=== PATIENT | female | born 1950 | race Caucasian/White ===

== ENCOUNTER 2016-08-11 05:46 | Day surgery (SDC) | payer OTHER ==
[2016-08-05 09:16] VITALS: BMI 30.4
--- NOTE | 2016-08-11 07:06 | HP ---
Admitting History and Physical - Admission History of Present Illness: patient is a 65 y/o female with a past medical history of niddm, hypothyroidism , and scizophrenia. Patient presents for ECT, her last ECT was 08/04/16. She reports increased sleeping and feeling of depressions. She denies any suicidal or homicidal ideation. patient denies any visual or auditory hallucination. She denies any recent illness or hospitalizations. History Source: Patient - Past Medical History Cardiovascular: Yes: HTN, Hyperlipdemia. No: AFIB, Aneurysm, Aortic Insufficiency, Aortic Stenosis, CAD, CHF, Deep Vein Thrombosis, [place], Mitral Insufficiency, Mitral Stenosis, Murmur, Pulmonary Hypertension, Other Psych: Yes: Schizophrenia Endocrine: Yes: Hyperthyroidism. No: Carter's Disease, Bill's Disease, Diabetes Insipidus, Diabetes Mellitus, Hyperparathyroidism, Hypothyroidism, Osteopenia, SIADH, Other - Past Surgical History Past Surgical History: Yes: None - Smoking History Smoking history: Former smoker Have you smoked in the past 12 months: No If you are a former smoker, when did you quit?: - Alcohol/Substance Use Hx Alcohol Use: No History of Substance Use: reports: None - Social History Usual Living Arrangement: Yes: Other (resides at ECT) ADL: Independent History of Recent Travel: No Home Medications - Allergies Allergies/Adverse Reactions: Allergies Allergy/AdvReac Type Severity Reaction Status Date / Time lithium [[place]] AdvReac Mild SHAKINESS Verified 03/29/16 06:38 - Home Medications Home Medications: Ambulatory Orders Aspirin [Aspirin EC] 81 mg PO DAILY 07/09/14 Cyclosporine [Restasis] 1 each OU BID 07/09/14 Clozapine 200 mg PO DAILY 07/10/14 Clozapine 300 mg PO HS 07/10/14 Levothyroxine [Synthroid -] 125 mcg PO DAILY 07/10/14 Lorazepam [Ativan] 1 mg PO BID 07/10/14 Metformin HCl [Glucophage -] 500 mg PO BID 07/10/14 Mv,Ca,Min/Iron Fum/FA/Vit K [Multi For Her Tablet] 1 each PO DAILY 07/10/14 Sertraline HCl [Zoloft] 100 mg PO HS 07/10/14 Sennosides [Senna Concentrate] 8.6 mg PO DAILY 03/05/15 Naproxen [Naprosyn -] 500 mg PO BID PRN 07/17/15 Polyethylene Glycol 3350 [Miralax 119 gm Btl -] 17 gm PO HS 10/01/15 Brexpiprazole [Rexulti] 2 mg PO DAILY 04/19/16 Oxcarbazepine [Trileptal] 600 mg PO BID 08/04/16 Family Disease History - Family Disease History Family History: Unremarkable Review of Systems - Review of Systems Constitutional: reports: No Symptoms Eyes: reports: No Symptoms HENT: reports: No Symptoms Neck: reports: No Symptoms Cardiovascular: reports: No Symptoms Respiratory: reports: No Symptoms Gastrointestinal: reports: No Symptoms Genitourinary: reports: No Symptoms Musculoskeletal: reports: No Symptoms Integumentary: reports: No Symptoms Neurological: reports: No Symptoms Endocrine: reports: No Symptoms Hematology/Lymphatic: reports: No Symptoms Psychiatric: reports: Depression Physical Examination Constitutional: Yes: Well Nourished, No Distress, Calm Eyes: Yes: WNL, Conjunctiva Clear, EOM Intact HENT: Yes: WNL, Atraumatic, Normocephalic Neck: Yes: WNL, Supple, Trachea Midline Cardiovascular: Yes: WNL, Regular Rate and Rhythm, S1, S2 Respiratory: Yes: WNL, Regular, CTA Bilaterally Gastrointestinal: Yes: WNL, Normal Bowel Sounds, Soft ...Rectal Exam: Yes: Deferred Renal/: Yes: WNL Breast(s): Yes: WNL Musculoskeletal: Yes: WNL Extremities: Yes: WNL Edema: No Peripheral Pulses WNL: Yes Peripheral Pulses: Left Radial: 4+, Right Radial: 4+, Left Doralis Pedis: 3+, Right Dorsalis Pedis: 3+, Left Femoral: 3+, Right Femoral: 3+ Integumentary: Yes: WNL Neurological: Yes: WNL, Alert, Oriented ...Motor Strength: WNL Psychiatric: Yes: WNL, Alert, Oriented Labs: reviewed 03/22 Imaging - Results EKG: Report Reviewed, Other (nsr no ischemic changes, unchanged from prior) Assessment/Plan pt is a 65 y/o female that presents for ECT, patient has received ect in the past, labs and ekg reviewed low risk for ECT informed consent, risks/benefits to be obtained by Dr [place]
[2016-08-11] MEDS ORDERED: ONDANSETRON 4 MG/2 ML VIAL IVPUSH PRN (08:39)
[2016-08-11 08:59] VITALS: TEMP 98.7
[2016-08-11 10:13] VITALS: BP 130/70; PULSE 88
== END 2016-08-11 12:20 | disposition home or self-care (01) ==
LOC: FECT 05:46
PROVIDERS: ATTEND Psychiatry & Neurology Psychiatry
PROC: GZB4ZZZ Other Electroconvulsive Therapy (ICD-10-PCS; principal; 2016-08-11 07:30)
DX: F25.1 Schizoaffective disorder, depressive type (principal)
CPT/HCPCS: 90870; 94760

== ENCOUNTER 2016-08-18 05:38 | Day surgery (SDC) | payer OTHER ==
[2016-08-11 13:29] VITALS: BMI 30.4
[2016-08-18] MEDS ORDERED: ONDANSETRON 4 MG/2 ML VIAL IVPUSH PRN (07:21)
[2016-08-18 08:20] VITALS: TEMP 98.9
[2016-08-18 08:45] VITALS: PULSE 89
[2016-08-18 10:07] VITALS: BP 132/72
== END 2016-08-18 09:45 | disposition home or self-care (01) ==
LOC: FECT 05:38
PROVIDERS: ATTEND Psychiatry & Neurology Psychiatry
PROC: GZB4ZZZ Other Electroconvulsive Therapy (ICD-10-PCS; principal; 2016-08-18 07:30)
DX: F25.1 Schizoaffective disorder, depressive type (principal)
CPT/HCPCS: 90870; 94760

== ENCOUNTER 2016-08-25 05:43 | Day surgery (SDC) | payer OTHER ==
[2016-08-18 14:12] VITALS: BMI 30.4
[2016-08-25] MEDS ORDERED: ONDANSETRON 4 MG/2 ML VIAL IVPUSH PRN (06:04)
[2016-08-25 06:17] VITALS: TEMP 98
[2016-08-25] MEDS ORDERED: KETAMINE HCL 500 MG/10 ML VIAL ONE (06:58)
[2016-08-25 11:21] VITALS: BP 140/71; PULSE 88
== END 2016-08-25 11:00 | disposition home or self-care (01) ==
LOC: FECT 05:43
PROVIDERS: ATTEND Psychiatry & Neurology Psychiatry
PROC: GZB4ZZZ Other Electroconvulsive Therapy (ICD-10-PCS; principal; 2016-08-25 07:45)
DX: F25.1 Schizoaffective disorder, depressive type (principal)
CPT/HCPCS: 90870; 94760

== ENCOUNTER 2016-09-01 05:35 | Day surgery (SDC) | payer OTHER ==
[2016-08-29 08:14] VITALS: BMI 30.4
[2016-09-01] MEDS ORDERED: KETAMINE HCL 500 MG/10 ML VIAL ONE (07:39)
[2016-09-01] MEDS ORDERED: LACTATED RINGERS SOLUTION 1,000 ML IV SCH (07:45)
[2016-09-01 08:49] VITALS: BP 143/82; PULSE 84; TEMP 97.4
== END 2016-09-01 10:14 | disposition home or self-care (01) ==
LOC: FECT 05:35
PROVIDERS: ATTEND Psychiatry & Neurology Psychiatry
PROC: GZB4ZZZ Other Electroconvulsive Therapy (ICD-10-PCS; principal; 2016-09-01 07:45)
DX: F25.1 Schizoaffective disorder, depressive type (principal)
CPT/HCPCS: 90870; 94760

== ENCOUNTER 2016-09-08 05:32 | Day surgery (SDC) | payer OTHER ==
[2016-09-05 17:43] VITALS: BMI 30.4
--- NOTE | 2016-09-08 06:59 | HP ---
Admitting History and Physical - Admission History of Present Illness: patient is a 65 y/o female with a past medical history of NIDDM, hypothyroidism , scizophrenia. Patient reports her ECT, her last ECT was 09/01/16. She reports ongoing feelings of depression. she denies any suicidal ideation. Patient denies any visual or auditory hallucination. She does reports compliance with prescribed medications. - Past Medical History Cardiovascular: Yes: HTN, Hyperlipdemia. No: AFIB, Aneurysm, Aortic Insufficiency, Aortic Stenosis, CAD, CHF, Deep Vein Thrombosis, [place], Mitral Insufficiency, Mitral Stenosis, Murmur, Pulmonary Hypertension, Other Psych: Yes: Schizophrenia Endocrine: Yes: Hyperthyroidism. No: [place]'s Disease, [place]'s Disease, Diabetes Insipidus, Diabetes Mellitus, Hyperparathyroidism, Hypothyroidism, Osteopenia, SIADH, Other - Past Surgical History Past Surgical History: Yes: None - Smoking History Smoking history: Former smoker Have you smoked in the past 12 months: No If you are a former smoker, when did you quit?: - Alcohol/Substance Use Hx Alcohol Use: No History of Substance Use: reports: None - Social History ADL: Independent History of Recent Travel: No Home Medications - Allergies Allergies/Adverse Reactions: Allergies Allergy/AdvReac Type Severity Reaction Status Date / Time lithium [[place]] AdvReac Mild SHAKINESS Verified 03/29/16 06:38 - Home Medications Home Medications: Ambulatory Orders Aspirin [Aspirin EC] 81 mg PO DAILY 07/09/14 Cyclosporine [Restasis] 1 each OU BID 07/09/14 Clozapine 200 mg PO DAILY 07/10/14 Clozapine 300 mg PO HS 07/10/14 Levothyroxine [Synthroid -] 125 mcg PO DAILY 07/10/14 Lorazepam [Ativan] 1 mg PO BID 07/10/14 Metformin HCl [Glucophage -] 500 mg PO BID 07/10/14 Mv,Calcium,Min/Iron/Folic/Vitk [Multi For Her Tablet] 1 each PO DAILY 07/10/14 Sertraline HCl [Zoloft] 100 mg PO HS 07/10/14 Sennosides [Senna Concentrate] 8.6 mg PO DAILY 03/05/15 Naproxen [Naprosyn -] 500 mg PO BID PRN 07/17/15 Polyethylene Glycol 3350 [Miralax 119 gm Btl -] 17 gm PO HS 10/01/15 Brexpiprazole [Rexulti] 2 mg PO DAILY 04/19/16 Oxcarbazepine [Trileptal] 600 mg PO BID 08/04/16 Family Disease History - Family Disease History Family History: Unremarkable Review of Systems - Review of Systems Constitutional: reports: No Symptoms Eyes: reports: No Symptoms HENT: reports: No Symptoms Neck: reports: No Symptoms Cardiovascular: reports: No Symptoms Respiratory: reports: No Symptoms Gastrointestinal: reports: No Symptoms Genitourinary: reports: No Symptoms Musculoskeletal: reports: No Symptoms Integumentary: reports: No Symptoms Neurological: reports: No Symptoms Endocrine: reports: No Symptoms Hematology/Lymphatic: reports: No Symptoms Psychiatric: reports: Depression Physical Examination Constitutional: Yes: Well Nourished, No Distress, Calm Eyes: Yes: WNL, Conjunctiva Clear, EOM Intact HENT: Yes: WNL, Atraumatic, Normocephalic Neck: Yes: WNL, Supple, Trachea Midline Cardiovascular: Yes: WNL, Regular Rate and Rhythm, S1, S2 Respiratory: Yes: WNL, Regular, CTA Bilaterally Gastrointestinal: Yes: WNL, Normal Bowel Sounds, Soft ...Rectal Exam: Yes: Deferred Renal/: Yes: WNL Breast(s): Yes: WNL Musculoskeletal: Yes: WNL Extremities: Yes: WNL Edema: No Peripheral Pulses WNL: Yes Peripheral Pulses: Left Radial: 4+, Right Radial: 4+, Left Doralis Pedis: 3+, Right Dorsalis Pedis: 3+, Left Femoral: 3+, Right Femoral: 3+ Integumentary: Yes: WNL Neurological: Yes: WNL, Alert, Oriented ...Motor Strength: WNL Psychiatric: Yes: WNL, Alert, Oriented Labs: reviewed 03/22 Imaging - Results EKG: Image Reviewed (nsr, no ischemic changes) Assessment/Plan patient is a 65 y/o female that presents for ect, she has received ect in the past and denies any adverse reaction to anesthesia. labs and ekg reviewed pt is low risk for ect informed consent, risks/benefits to be obtained by Dr [place]
[2016-09-08 09:11] VITALS: TEMP 98.4
[2016-09-08 09:32] VITALS: BP 122/82; PULSE 89
== END 2016-09-08 10:00 | disposition home or self-care (01) ==
LOC: FECT 05:32
PROVIDERS: ATTEND Psychiatry & Neurology Psychiatry
PROC: GZB4ZZZ Other Electroconvulsive Therapy (ICD-10-PCS; principal; 2016-09-08 07:15)
DX: F25.1 Schizoaffective disorder, depressive type (principal)
CPT/HCPCS: 90870; 94760

== ENCOUNTER 2016-09-21 05:45 | Day surgery (SDC) | payer OTHER ==
[2016-09-09 14:00] VITALS: BMI 30.6
[~2016-09-21 05:45] MED LIST: ONDANSETRON 4 MG/2 ML VIAL IVPUSH PRN
[2016-09-21] MEDS ORDERED: ONDANSETRON 4 MG/2 ML VIAL IVPUSH PRN (07:33)
[2016-09-21] MEDS ORDERED: oxyCODONE HCL 5 MG TABLET PO PRN (07:33)
[2016-09-21] MEDS ORDERED: LACTATED RINGERS SOLUTION 1,000 ML IV SCH (07:45)
[2016-09-21 09:16] VITALS: BP 113/66; PULSE 78; TEMP 98
== END 2016-09-21 10:00 | disposition home or self-care (01) ==
LOC: FECT 05:45
PROVIDERS: ATTEND Psychiatry & Neurology Psychiatry
PROC: GZB4ZZZ Other Electroconvulsive Therapy (ICD-10-PCS; principal; 2016-09-21 07:45)
DX: F25.1 Schizoaffective disorder, depressive type (principal)
CPT/HCPCS: 90870; 94760

== ENCOUNTER 2016-10-06 05:36 | Day surgery (SDC) | payer OTHER ==
[2016-09-21 09:34] VITALS: BMI 30.6
[~2016-10-06 05:36] MED LIST changes: +LACTATED RINGERS SOLUTION 1,000 ML IV SCH
[2016-10-06] MEDS ORDERED: ONDANSETRON 4 MG/2 ML VIAL IVPUSH PRN (06:48)
[2016-10-06 08:46] VITALS: TEMP 98.9
[2016-10-06 11:41] VITALS: BP 134/87; PULSE 74
== END 2016-10-06 10:10 | disposition home or self-care (01) ==
LOC: FECT 05:36
PROVIDERS: ATTEND Psychiatry & Neurology Psychiatry
PROC: GZB4ZZZ Other Electroconvulsive Therapy (ICD-10-PCS; principal; 2016-10-06 08:00)
DX: F25.1 Schizoaffective disorder, depressive type (principal)
CPT/HCPCS: 90870; 94760

== ENCOUNTER 2016-10-25 05:43 | Day surgery (SDC) | payer OTHER ==
[2016-10-19 18:12] VITALS: BMI 30.6
[2016-10-25 07:47] VITALS: TEMP 97.9
[2016-10-25] MEDS ORDERED: LACTATED RINGERS SOLUTION 1,000 ML IV SCH (09:00)
[2016-10-25] MEDS ORDERED: ONDANSETRON 4 MG/2 ML VIAL IVPUSH PRN (09:00)
[2016-10-25 11:26] VITALS: BP 142/76; PULSE 76
== END 2016-10-25 10:30 | disposition home or self-care (01) ==
LOC: FECT 05:43
PROVIDERS: ATTEND Psychiatry & Neurology Psychiatry
PROC: GZB4ZZZ Other Electroconvulsive Therapy (ICD-10-PCS; principal; 2016-10-25 07:30)
DX: F25.1 Schizoaffective disorder, depressive type (principal)
CPT/HCPCS: 90870; 94760

== ENCOUNTER 2016-11-03 05:43 | Day surgery (SDC) | payer OTHER ==
[2016-10-31 12:14] VITALS: BMI 30.6
[2016-11-03] MEDS ORDERED: KETAMINE HCL 500 MG/10 ML VIAL ONE (07:09)
[2016-11-03 08:38] VITALS: TEMP 98
[2016-11-03 10:33] VITALS: BP 140/85; PULSE 88
== END 2016-11-03 10:30 | disposition home or self-care (01) ==
LOC: FECT 05:43
PROVIDERS: ATTEND Psychiatry & Neurology Psychiatry
PROC: GZB4ZZZ Other Electroconvulsive Therapy (ICD-10-PCS; principal; 2016-11-03 08:15)
DX: F25.1 Schizoaffective disorder, depressive type (principal)
CPT/HCPCS: 90870; 94760

== ENCOUNTER 2016-11-10 05:39 | Day surgery (SDC) | payer OTHER ==
[2016-11-08 10:52] VITALS: BMI 30.6
[2016-11-10 06:57] VITALS: TEMP 98.8
[2016-11-10] MEDS ORDERED: KETAMINE HCL 500 MG/10 ML VIAL ONE (07:29)
[2016-11-10 08:47] VITALS: BP 138/80; PULSE 83
== END 2016-11-10 09:15 | disposition short-term general hospital (02) ==
LOC: FECT 05:39
PROVIDERS: ATTEND Psychiatry & Neurology Psychiatry
PROC: GZB4ZZZ Other Electroconvulsive Therapy (ICD-10-PCS; principal; 2016-11-10 07:45)
DX: F25.1 Schizoaffective disorder, depressive type (principal)
CPT/HCPCS: 90870; 94760

== ENCOUNTER 2016-11-22 05:37 | Day surgery (SDC) | payer OTHER ==
[2016-11-22 06:54] VITALS: TEMP 98.3; BMI 30.6
--- NOTE | 2016-11-22 07:13 | HP ---
Admitting History and Physical - Admission History of Present Illness: patient is a 66 y/o female with a past medical history of NIDDM, hypothyroidism , and scizophrenia. Patient presents for ECT her last ECT was11/10/16. Patient reports an improvement in depressive symptom within the past month since restarting ECT. she reports increasing her days in program to 3 days a week. patient denies any recent medication changes, hospitalizations or illness. she reports compliance with prescribed medications. - Past Medical History Cardiovascular: Yes: HTN, Hyperlipdemia. No: AFIB, Aneurysm, Aortic Insufficiency, Aortic Stenosis, CAD, CHF, Deep Vein Thrombosis, [place], Mitral Insufficiency, Mitral Stenosis, Murmur, Pulmonary Hypertension, Other Psych: Yes: Schizophrenia Endocrine: Yes: Hyperthyroidism. No: [place]'s Disease, Bill's Disease, Diabetes Insipidus, Diabetes Mellitus, Hyperparathyroidism, Hypothyroidism, Osteopenia, SIADH, Other - Past Surgical History Past Surgical History: Yes: None - Smoking History Smoking history: Former smoker Have you smoked in the past 12 months: No If you are a former smoker, when did you quit?: - Alcohol/Substance Use Hx Alcohol Use: No History of Substance Use: reports: None - Social History ADL: Independent History of Recent Travel: No Home Medications - Allergies Allergies/Adverse Reactions: Allergies Allergy/AdvReac Type Severity Reaction Status Date / Time lithium [[place]] AdvReac Mild SHAKINESS Verified 10/06/16 15:11 - Home Medications Home Medications: Ambulatory Orders Aspirin [Aspirin EC] 81 mg PO DAILY 07/09/14 Cyclosporine [Restasis] 1 each OU BID 07/09/14 Clozapine 200 mg PO DAILY 07/10/14 Clozapine 300 mg PO HS 07/10/14 Levothyroxine [Synthroid -] 125 mcg PO DAILY 07/10/14 Lorazepam [Ativan] 1 mg PO BID 07/10/14 Metformin HCl [Glucophage -] 500 mg PO BID 07/10/14 Mv,Calcium,Min/Iron/Folic/Vitk [Multi For Her Tablet] 1 each PO DAILY 07/10/14 Sertraline HCl [Zoloft] 100 mg PO DAILY 07/10/14 Sennosides [Senna Concentrate] 8.6 mg PO DAILY 03/05/15 Naproxen [Naprosyn -] 500 mg PO BID PRN 07/17/15 Polyethylene Glycol 3350 [Miralax 119 gm Btl -] 17 gm PO HS 10/01/15 Brexpiprazole [Rexulti] 2 mg PO DAILY 04/19/16 Oxcarbazepine [Trileptal] 600 mg PO BID 08/04/16 Family Disease History - Family Disease History Family History: Unremarkable Review of Systems - Review of Systems Constitutional: reports: No Symptoms Eyes: reports: No Symptoms HENT: reports: No Symptoms Neck: reports: No Symptoms Cardiovascular: reports: No Symptoms Respiratory: reports: No Symptoms Gastrointestinal: reports: No Symptoms Genitourinary: reports: No Symptoms Breasts: reports: No Symptoms Reported Musculoskeletal: reports: No Symptoms Integumentary: reports: No Symptoms Neurological: reports: No Symptoms Endocrine: reports: No Symptoms Hematology/Lymphatic: reports: No Symptoms Psychiatric: reports: No Symptoms Physical Examination Vital Signs: Vital Signs Temperature 98.3 F 11/22/16 06:50 Pulse Rate 94 H 11/22/16 06:50 Respiratory Rate 18 11/22/16 06:50 Blood Pressure 157/89 11/22/16 06:50 O2 Sat by Pulse Oximetry (%) 96 11/22/16 06:50 Constitutional: Yes: Well Nourished, No Distress, Calm Eyes: Yes: WNL, Conjunctiva Clear, EOM Intact HENT: Yes: WNL, Atraumatic, Normocephalic Neck: Yes: WNL, Supple, Trachea Midline Cardiovascular: Yes: WNL, Regular Rate and Rhythm, S1 Respiratory: Yes: WNL, Regular, CTA Bilaterally Gastrointestinal: Yes: WNL, Normal Bowel Sounds, Soft ...Rectal Exam: Yes: Deferred Renal/: Yes: WNL Musculoskeletal: Yes: WNL Extremities: Yes: WNL Edema: No Peripheral Pulses WNL: Yes Peripheral Pulses: Left Radial: 4+, Right Radial: 4+, Left Doralis Pedis: 3+, Right Dorsalis Pedis: 3+, Left Femoral: 3+, Right Femoral: 3+ Integumentary: Yes: WNL Neurological: Yes: WNL, Alert, Oriented ...Motor Strength: WNL Psychiatric: Yes: WNL, Alert, Oriented Labs: reviewed 10/21 Imaging - Results EKG: Image Reviewed Assessment/Plan pt is a 66 y/o female that presents for ECT, she has received anesthesia in the past and denies any adverse reaction to anesthesia. labs and ekg reviewed pt is low risk for procedure informed consent, risks/benefits to be obtained by Dr [place].
[2016-11-22] MEDS ORDERED: KETAMINE HCL 500 MG/10 ML VIAL ONE (07:48)
[2016-11-22] MEDS ORDERED: ONDANSETRON 4 MG/2 ML VIAL IVPUSH PRN (08:32)
[2016-11-22] MEDS ORDERED: LACTATED RINGERS SOLUTION 1,000 ML IV SCH (08:45)
[2016-11-22 10:30] VITALS: BP 139/79; PULSE 77
== END 2016-11-22 10:15 | disposition home or self-care (01) ==
LOC: FECT 05:37
PROVIDERS: ATTEND Psychiatry & Neurology Psychiatry
PROC: GZB4ZZZ Other Electroconvulsive Therapy (ICD-10-PCS; principal; 2016-11-22 07:30)
DX: F25.1 Schizoaffective disorder, depressive type (principal)
CPT/HCPCS: 90870; 94760

== ENCOUNTER 2016-11-29 05:48 | Day surgery (SDC) | payer OTHER ==
[2016-11-29 06:45] VITALS: BMI 30.1
[2016-11-29 09:38] VITALS: BP 128/78; PULSE 80; TEMP 98.9
== END 2016-11-29 10:00 | disposition home or self-care (01) ==
LOC: FECT 05:48
PROVIDERS: ATTEND Psychiatry & Neurology Psychiatry
PROC: GZB4ZZZ Other Electroconvulsive Therapy (ICD-10-PCS; principal; 2016-11-29 08:00)
DX: F25.1 Schizoaffective disorder, depressive type (principal)
CPT/HCPCS: 90870; 94760

== ENCOUNTER 2016-12-13 06:46 | Day surgery (SDC) | payer OTHER ==
[2016-12-13 08:04] VITALS: BMI 30.1
[2016-12-13 10:07] VITALS: TEMP 98.8
[2016-12-13 10:08] VITALS: BP 129/79; PULSE 77
== END 2016-12-13 10:30 | disposition home or self-care (01) ==
LOC: FECT 06:46
PROVIDERS: ATTEND Psychiatry & Neurology Psychiatry
PROC: GZB4ZZZ Other Electroconvulsive Therapy (ICD-10-PCS; principal; 2016-12-13 08:15)
DX: F25.1 Schizoaffective disorder, depressive type (principal)
CPT/HCPCS: 90870; 94760

== ENCOUNTER 2016-12-20 05:36 | Day surgery (SDC) | payer OTHER ==
[2016-12-15 12:27] VITALS: BMI 30.1
[2016-12-20] MEDS ORDERED: KETAMINE HCL 500 MG/10 ML VIAL ONE (08:25)
[2016-12-20] MEDS ORDERED: LACTATED RINGERS SOLUTION 1,000 ML IV SCH (09:30)
[2016-12-20 10:54] VITALS: BP 136/77; PULSE 70; TEMP 98.4
== END 2016-12-20 10:30 | disposition home or self-care (01) ==
LOC: FECT 05:36
PROVIDERS: ATTEND Psychiatry & Neurology Psychiatry
PROC: GZB4ZZZ Other Electroconvulsive Therapy (ICD-10-PCS; principal; 2016-12-20 08:00)
DX: F25.1 Schizoaffective disorder, depressive type (principal)
CPT/HCPCS: 90870; 94760

== ENCOUNTER 2016-12-27 05:42 | Day surgery (SDC) | payer OTHER ==
[2016-12-20 16:35] VITALS: BMI 30.1
--- NOTE | 2016-12-27 06:54 | HP ---
Admitting History and Physical - Admission History of Present Illness: patient is a 66 y/o female with a past medical history of schizophrenia, NIDDM, and hypothyroidism. Patient presents for ECT her last ECT was 12/20/16. patient reports feeling better and a improvement in depressive symptoms within the last month. Patient denies any recent hospitalizations, illness or medication changes. She denies any suicidal or homicidal ideation, visual or auditory hallucinations. She reports compliance with prescribed medications. History Source: Patient Limitations to Obtaining History: No Limitations - Past Medical History Cardiovascular: Yes: HTN, Hyperlipdemia. No: AFIB, Aneurysm, Aortic Insufficiency, Aortic Stenosis, CAD, CHF, Deep Vein Thrombosis, [place], Mitral Insufficiency, Mitral Stenosis, Murmur, Pulmonary Hypertension, Other Psych: Yes: Schizophrenia Endocrine: Yes: Hyperthyroidism. No: [place]'s Disease, [place]'s Disease, Diabetes Insipidus, Diabetes Mellitus, Hyperparathyroidism, Hypothyroidism, Osteopenia, SIADH, Other - Past Surgical History Past Surgical History: Yes: None - Smoking History Smoking history: Former smoker Have you smoked in the past 12 months: No If you are a former smoker, when did you quit?: - Alcohol/Substance Use Hx Alcohol Use: No History of Substance Use: reports: None - Social History Usual Living Arrangement: Yes: Other (assisted living) ADL: Independent History of Recent Travel: No Home Medications - Allergies Allergies/Adverse Reactions: Allergies Allergy/AdvReac Type Severity Reaction Status Date / Time lithium [[place]] AdvReac Mild SHAKINESS Verified 10/06/16 15:11 - Home Medications Home Medications: Ambulatory Orders Aspirin [Aspirin EC] 81 mg PO DAILY 07/09/14 Cyclosporine [Restasis] 1 each OU BID 07/09/14 Clozapine 200 mg PO DAILY 07/10/14 Clozapine 300 mg PO HS 07/10/14 Levothyroxine [Synthroid -] 125 mcg PO DAILY 07/10/14 Lorazepam [Ativan] 1 mg PO BID 07/10/14 Metformin HCl [Glucophage -] 500 mg PO BID 07/10/14 Mv,Calcium,Min/Iron/Folic/Vitk [Multi For Her Tablet] 1 each PO DAILY 07/10/14 Sertraline HCl [Zoloft] 100 mg PO DAILY 07/10/14 Sennosides [Senna Concentrate] 8.6 mg PO DAILY 03/05/15 Naproxen [Naprosyn -] 500 mg PO BID PRN 07/17/15 Polyethylene Glycol 3350 [Miralax 119 gm Btl -] 17 gm PO HS 10/01/15 Brexpiprazole [Rexulti] 2 mg PO DAILY 04/19/16 Oxcarbazepine [Trileptal] 600 mg PO BID 08/04/16 Review of Systems - Review of Systems Constitutional: reports: No Symptoms Eyes: reports: No Symptoms HENT: reports: No Symptoms Neck: reports: No Symptoms Cardiovascular: reports: No Symptoms Respiratory: reports: No Symptoms Gastrointestinal: reports: No Symptoms Genitourinary: reports: Frequency Musculoskeletal: reports: No Symptoms Integumentary: reports: No Symptoms Neurological: reports: No Symptoms Endocrine: reports: No Symptoms Hematology/Lymphatic: reports: No Symptoms Psychiatric: reports: No Symptoms Physical Examination Constitutional: Yes: Well Nourished, No Distress, Calm Eyes: Yes: WNL, Conjunctiva Clear, EOM Intact HENT: Yes: WNL, Atraumatic, Normocephalic Neck: Yes: WNL, Supple, Trachea Midline Cardiovascular: Yes: WNL, Regular Rate and Rhythm, S1, S2 Respiratory: Yes: WNL, Regular, CTA Bilaterally Gastrointestinal: Yes: WNL, Normal Bowel Sounds, Soft ...Rectal Exam: Yes: Deferred Renal/: Yes: WNL Musculoskeletal: Yes: WNL Extremities: Yes: WNL Edema: No Peripheral Pulses WNL: Yes Peripheral Pulses: Left Radial: 4+, Right Radial: 4+, Left Doralis Pedis: 3+, Right Dorsalis Pedis: 3+, Left Femoral: 3+, Right Femoral: 3+ Integumentary: Yes: WNL Neurological: Yes: WNL, Alert, Oriented ...Motor Strength: WNL Psychiatric: Yes: WNL, Alert, Oriented Labs: reviewed 10/21 Imaging - Results EKG: Image Reviewed, Other (nsr Right BBB, bifasicular block) Assessment/Plan pt is a 66 y/o female that presents for ect, she has received ect in the past and denies any adverse reaction to anesthesia. labs and ekg reviewed pt is low risk for procedure informed consent, risks/benefits to be obtained by Dr [place]
[2016-12-27 08:39] VITALS: TEMP 97.6
[2016-12-27 08:40] VITALS: BP 133/80; PULSE 66
== END 2016-12-27 10:36 | disposition home or self-care (01) ==
LOC: FECT 05:42
PROVIDERS: ATTEND Psychiatry & Neurology Psychiatry
PROC: GZB4ZZZ Other Electroconvulsive Therapy (ICD-10-PCS; principal; 2016-12-27 07:30)
DX: F25.1 Schizoaffective disorder, depressive type (principal)
CPT/HCPCS: 90870; 94760

== ENCOUNTER 2017-01-05 05:40 | Day surgery (SDC) | payer OTHER ==
[2016-12-28 13:00] VITALS: BMI 31.4
[2017-01-05 08:28] VITALS: TEMP 98.4
[2017-01-05 09:23] VITALS: BP 146/78; PULSE 89
== END 2017-01-05 10:00 | disposition home or self-care (01) ==
LOC: FECT 05:40
PROVIDERS: ATTEND Psychiatry & Neurology Psychiatry
PROC: GZB4ZZZ Other Electroconvulsive Therapy (ICD-10-PCS; principal; 2017-01-05 08:00)
DX: F25.1 Schizoaffective disorder, depressive type (principal)
CPT/HCPCS: 90870; 94760

== ENCOUNTER 2017-01-12 05:46 | Day surgery (SDC) | payer OTHER ==
[2017-01-05 12:38] VITALS: BMI 31.4
[2017-01-12] MEDS ORDERED: ONDANSETRON 4 MG/2 ML VIAL IVPUSH PRN (08:47)
[2017-01-12] MEDS ORDERED: LACTATED RINGERS SOLUTION 1,000 ML IV SCH (09:00)
[2017-01-12 09:25] VITALS: TEMP 98.5
[2017-01-12 10:33] VITALS: BP 137/77; PULSE 87
== END 2017-01-12 10:15 | disposition home or self-care (01) ==
LOC: FECT 05:46
PROVIDERS: ATTEND Psychiatry & Neurology Psychiatry
PROC: GZB4ZZZ Other Electroconvulsive Therapy (ICD-10-PCS; principal; 2017-01-12 08:30)
DX: F25.1 Schizoaffective disorder, depressive type (principal)
CPT/HCPCS: 90870; 94760

== ENCOUNTER 2017-01-19 05:45 | Day surgery (SDC) | payer OTHER ==
[2017-01-12 14:38] VITALS: BMI 31.4
[2017-01-19 07:36] VITALS: TEMP 98.2
[2017-01-19] MEDS ORDERED: KETAMINE HCL 500 MG/10 ML VIAL ONE (07:59)
[2017-01-19 08:49] VITALS: PULSE 87
[2017-01-19 09:33] VITALS: BP 131/80
== END 2017-01-19 10:20 | disposition home or self-care (01) ==
LOC: FECT 05:45
PROVIDERS: ATTEND Psychiatry & Neurology Psychiatry
PROC: GZB4ZZZ Other Electroconvulsive Therapy (ICD-10-PCS; principal; 2017-01-19 08:15)
DX: F25.1 Schizoaffective disorder, depressive type (principal)
CPT/HCPCS: 90870; 94760

== ENCOUNTER 2017-01-26 05:43 | Day surgery (SDC) | payer OTHER ==
[2017-01-19 16:56] VITALS: BMI 31.4
--- NOTE | 2017-01-26 07:11 | HP ---
Admitting History and Physical - Admission History of Present Illness: patient is a 66y/o female with a past medical history of scizophrenia, NIDDM, and hypothyroidism. patient presents for ect her last ect was 01/19/17. Patient reports feeling well, she denies any changes in medication. She denies any recent illnesses or hospitalizations. Patient denies any suicidal or homicidal ideation, visual or auditory hallucinations. History Source: Patient Limitations to Obtaining History: No Limitations - Past Medical History Cardiovascular: Yes: HTN, Hyperlipdemia. No: AFIB, Aneurysm, Aortic Insufficiency, Aortic Stenosis, CAD, CHF, Deep Vein Thrombosis, [place], Mitral Insufficiency, Mitral Stenosis, Murmur, Pulmonary Hypertension, Other Psych: Yes: Schizophrenia Endocrine: Yes: Hyperthyroidism. No: [place]'s Disease, [place]'s Disease, Diabetes Insipidus, Diabetes Mellitus, Hyperparathyroidism, Hypothyroidism, Osteopenia, SIADH, Other - Past Surgical History Past Surgical History: Yes: None - Smoking History Smoking history: Former smoker Have you smoked in the past 12 months: No If you are a former smoker, when did you quit?: - Alcohol/Substance Use Hx Alcohol Use: No History of Substance Use: reports: None - Social History ADL: Independent History of Recent Travel: No Home Medications - Allergies Allergies/Adverse Reactions: Allergies Allergy/AdvReac Type Severity Reaction Status Date / Time lithium [[place]] AdvReac Mild SHAKINESS Verified 10/06/16 15:11 - Home Medications Home Medications: Ambulatory Orders Aspirin [Aspirin EC] 81 mg PO DAILY 07/09/14 Cyclosporine [Restasis] 1 each OU BID 07/09/14 Clozapine 200 mg PO DAILY 07/10/14 Clozapine 300 mg PO HS 07/10/14 Levothyroxine [Synthroid -] 125 mcg PO DAILY 07/10/14 Lorazepam [Ativan] 1 mg PO BID 07/10/14 Metformin HCl [Glucophage -] 500 mg PO BID 07/10/14 Mv,Calcium,Min/Iron/Folic/Vitk [Multi For Her Tablet] 1 each PO DAILY 07/10/14 Sertraline HCl [Zoloft] 100 mg PO DAILY 07/10/14 Sennosides [Senna Concentrate] 8.6 mg PO DAILY 03/05/15 Naproxen [Naprosyn -] 500 mg PO BID PRN 07/17/15 Polyethylene Glycol 3350 [Miralax 119 gm Btl -] 17 gm PO HS 10/01/15 Brexpiprazole [Rexulti] 2 mg PO DAILY 04/19/16 Oxcarbazepine [Trileptal] 600 mg PO BID 08/04/16 Docusate Sodium [Dulcolax Stool Softener] 100 mg PO DAILY 01/26/17 Family Disease History - Family Disease History Family History: Unremarkable Review of Systems - Review of Systems Constitutional: reports: No Symptoms Eyes: reports: No Symptoms HENT: reports: No Symptoms Neck: reports: No Symptoms Cardiovascular: reports: No Symptoms Respiratory: reports: No Symptoms Gastrointestinal: reports: No Symptoms Genitourinary: reports: No Symptoms Musculoskeletal: reports: No Symptoms Integumentary: reports: No Symptoms Neurological: reports: No Symptoms Endocrine: reports: No Symptoms Hematology/Lymphatic: reports: No Symptoms Psychiatric: reports: No Symptoms Physical Examination Vital Signs: Vital Signs Temperature 98.5 F 01/26/17 06:10 Pulse Rate 98 H 01/26/17 06:10 Respiratory Rate 18 01/26/17 06:10 Blood Pressure 151/74 01/26/17 06:10 O2 Sat by Pulse Oximetry (%) 97 01/26/17 06:10 Constitutional: Yes: Well Nourished, No Distress, Calm Eyes: Yes: WNL, Conjunctiva Clear, EOM Intact HENT: Yes: WNL, Atraumatic, Normocephalic Neck: Yes: WNL, Supple, Trachea Midline Cardiovascular: Yes: WNL, Regular Rate and Rhythm, S1, S2 Respiratory: Yes: WNL, Regular, CTA Bilaterally Gastrointestinal: Yes: WNL, Normal Bowel Sounds, Soft ...Rectal Exam: Yes: Deferred Renal/: Yes: WNL Musculoskeletal: Yes: WNL Extremities: Yes: WNL Edema: No Peripheral Pulses WNL: Yes Peripheral Pulses: Left Radial: 4+, Right Radial: 4+, Left Doralis Pedis: 3+, Right Dorsalis Pedis: 3+, Left Femoral: 3+, Right Femoral: 3+ Integumentary: Yes: WNL Neurological: Yes: WNL, Alert, Oriented ...Motor Strength: WNL Psychiatric: Yes: WNL, Alert, Oriented Labs: reviewed 10/21 Imaging - Results EKG: Other (bifasicular block,Right BBB) Assessment/Plan pt is a 66 y/o female that presents for ect, she has received anesthesia in the past and denies any adverse reaction to anesthesia. labs and ekg reviewed. pt is low risk for procedure informed consent, risks/benefits to be obtained by Dr [place].
[2017-01-26 08:14] VITALS: TEMP 97.8
[2017-01-26 08:17] VITALS: PULSE 89
[2017-01-26 10:28] VITALS: BP 144/76
== END 2017-01-26 10:31 | disposition home or self-care (01) ==
LOC: FECT 05:43
PROVIDERS: ATTEND Psychiatry & Neurology Psychiatry
PROC: GZB4ZZZ Other Electroconvulsive Therapy (ICD-10-PCS; principal; 2017-01-26 08:00)
DX: F25.1 Schizoaffective disorder, depressive type (principal)
CPT/HCPCS: 90870; 94760

== ENCOUNTER 2017-02-02 09:21 | Day surgery (SDC) | payer OTHER ==
[2017-01-26 10:38] VITALS: BMI 31.4
[2017-02-02 09:35] VITALS: TEMP 98.5
[2017-02-02 11:04] VITALS: BP 134/84; PULSE 92
== END 2017-02-02 11:10 | disposition home or self-care (01) ==
LOC: FECT 09:21
PROVIDERS: ATTEND Psychiatry & Neurology Psychiatry
PROC: GZB4ZZZ Other Electroconvulsive Therapy (ICD-10-PCS; principal; 2017-02-02 08:30)
DX: F25.1 Schizoaffective disorder, depressive type (principal)
CPT/HCPCS: 90870; 94760

== ENCOUNTER 2017-02-09 05:44 | Day surgery (SDC) | payer OTHER ==
[2017-02-02 13:22] VITALS: BMI 31.4
[2017-02-09] MEDS ORDERED: ONDANSETRON 4 MG/2 ML VIAL IVPUSH PRN (08:11)
[2017-02-09] MEDS ORDERED: LACTATED RINGERS SOLUTION 1,000 ML IV SCH (08:15)
[2017-02-09 09:28] VITALS: TEMP 98.5
[2017-02-09 09:29] VITALS: BP 147/84; PULSE 88
== END 2017-02-09 10:15 | disposition home or self-care (01) ==
LOC: FECT 05:44
PROVIDERS: ATTEND Psychiatry & Neurology Psychiatry
PROC: GZB4ZZZ Other Electroconvulsive Therapy (ICD-10-PCS; principal; 2017-02-09 08:00)
DX: F25.1 Schizoaffective disorder, depressive type (principal)
CPT/HCPCS: 90870; 94760

== ENCOUNTER 2017-02-16 05:38 | Day surgery (SDC) | payer OTHER ==
[2017-02-09 12:44] VITALS: BMI 31.4
[2017-02-16 08:09] VITALS: TEMP 98.7
[2017-02-16 08:55] VITALS: BP 140/74; PULSE 88
== END 2017-02-16 09:05 | disposition home or self-care (01) ==
LOC: FECT 05:38
PROVIDERS: ATTEND Psychiatry & Neurology Psychiatry
PROC: GZB4ZZZ Other Electroconvulsive Therapy (ICD-10-PCS; principal; 2017-02-16 07:45)
DX: F25.1 Schizoaffective disorder, depressive type (principal)
CPT/HCPCS: 90870; 94760

== ENCOUNTER 2017-03-09 05:40 | Day surgery (SDC) | payer OTHER ==
[2017-02-24 08:20] VITALS: BMI 31.4
--- NOTE | 2017-03-09 07:13 | HP ---
Admitting History and Physical - Admission History of Present Illness: patient is a 66y/o female with a past medical history of niddm, hypothyroidism, and scizophrenia. patient presents for ect ,she has received ect in the past and her last ect was 02/16/17. patient reports and improvement in depressive symptoms since her wellbutrin was increased. she denies any suicidal or homicidal ideation, visual or auditory hallucinations. Patient denies any recent illnesses. History Source: Patient Limitations to Obtaining History: No Limitations - Past Medical History Cardiovascular: Yes: HTN, Hyperlipdemia. No: AFIB, Aneurysm, Aortic Insufficiency, Aortic Stenosis, CAD, CHF, Deep Vein Thrombosis, [place], Mitral Insufficiency, Mitral Stenosis, Murmur, Pulmonary Hypertension, Other Psych: Yes: Schizophrenia Endocrine: Yes: Hyperthyroidism. No: Geoffrey's Disease, Chauncey's Disease, Diabetes Insipidus, Diabetes Mellitus, Hyperparathyroidism, Hypothyroidism, Osteopenia, SIADH, Other - Past Surgical History Past Surgical History: Yes: None - Smoking History Smoking history: Former smoker Have you smoked in the past 12 months: No If you are a former smoker, when did you quit?: - Alcohol/Substance Use Hx Alcohol Use: No History of Substance Use: reports: None - Social History Usual Living Arrangement: Yes: Other (care home) ADL: Independent History of Recent Travel: No Home Medications - Allergies Allergies/Adverse Reactions: Allergies Allergy/AdvReac Type Severity Reaction Status Date / Time lithium [[place]] AdvReac Mild SHAKINESS Verified 10/06/16 15:11 - Home Medications Home Medications: Ambulatory Orders Aspirin [Aspirin EC] 81 mg PO DAILY 07/09/14 Cyclosporine [Restasis] 1 each OU BID 07/09/14 Clozapine 200 mg PO DAILY 07/10/14 Clozapine 300 mg PO HS 07/10/14 Levothyroxine [Synthroid -] 125 mcg PO DAILY 07/10/14 Lorazepam [Ativan] 1 mg PO BID 07/10/14 Metformin HCl [Glucophage -] 500 mg PO BID 07/10/14 Mv,Calcium,Min/Iron/Folic/Vitk [Multi For Her Tablet] 1 each PO DAILY 07/10/14 Sertraline HCl [Zoloft] 100 mg PO DAILY 07/10/14 Sennosides [Senna Concentrate] 8.6 mg PO DAILY 03/05/15 Naproxen [Naprosyn -] 500 mg PO BID PRN 07/17/15 Polyethylene Glycol 3350 [Miralax 119 gm Btl -] 17 gm PO HS 10/01/15 Brexpiprazole [Rexulti] 2 mg PO DAILY 04/19/16 Oxcarbazepine [Trileptal] 600 mg PO BID 08/04/16 Docusate Sodium [Dulcolax Stool Softener] 100 mg PO DAILY 01/26/17 Bupropion HCl [Wellbutrin Xl] 300 mg PO DAILY 03/09/17 Family Disease History - Family Disease History Family History: Denies Review of Systems - Review of Systems Constitutional: reports: No Symptoms Eyes: reports: No Symptoms HENT: reports: No Symptoms Neck: reports: No Symptoms Cardiovascular: reports: No Symptoms Respiratory: reports: No Symptoms Gastrointestinal: reports: No Symptoms Genitourinary: reports: No Symptoms Musculoskeletal: reports: No Symptoms Integumentary: reports: No Symptoms Neurological: reports: No Symptoms Endocrine: reports: No Symptoms Hematology/Lymphatic: reports: No Symptoms Psychiatric: reports: No Symptoms Physical Examination Vital Signs: Vital Signs Temperature 98.2 F 03/09/17 06:37 Pulse Rate 87 03/09/17 06:37 Respiratory Rate 18 03/09/17 06:37 Blood Pressure 135/82 03/09/17 06:37 O2 Sat by Pulse Oximetry (%) 96 03/09/17 06:37 Constitutional: Yes: Well Nourished, No Distress, Calm Eyes: Yes: WNL, Conjunctiva Clear, EOM Intact HENT: Yes: WNL, Atraumatic, Normocephalic Neck: Yes: WNL, Supple, Trachea Midline Cardiovascular: Yes: WNL, Regular Rate and Rhythm, S1, S2 Respiratory: Yes: WNL, Regular, CTA Bilaterally Gastrointestinal: Yes: WNL, Normal Bowel Sounds, Soft ...Rectal Exam: Yes: Deferred Renal/: Yes: WNL Breast(s): Yes: WNL Musculoskeletal: Yes: WNL Extremities: Yes: WNL Edema: No Peripheral Pulses WNL: Yes Peripheral Pulses: Left Radial: 4+, Right Radial: 4+, Left Doralis Pedis: 3+, Right Dorsalis Pedis: 3+, Left Femoral: 3+, Right Femoral: 3+ Integumentary: Yes: WNL Neurological: Yes: WNL, Alert, Oriented ...Motor Strength: WNL Psychiatric: Yes: WNL, Alert, Oriented Labs: reviewed 10/21 Imaging - Results EKG: Image Reviewed, Other (nsr no ischemic changes) Assessment/Plan pt is a 66 y/o female that presents for ect, labs and ekg reviewed pt is low risk for procedure informed consent, risks/benefits to be obtained by Dr [place]
[2017-03-09 08:45] VITALS: BP 129/80; PULSE 88; TEMP 98.2
== END 2017-03-09 09:10 | disposition home or self-care (01) ==
LOC: FECT 05:40
PROVIDERS: ATTEND Psychiatry & Neurology Psychiatry
PROC: GZB4ZZZ Other Electroconvulsive Therapy (ICD-10-PCS; principal; 2017-03-09 07:15)
DX: F25.1 Schizoaffective disorder, depressive type (principal)
CPT/HCPCS: 90870; 94760

== ENCOUNTER 2017-03-23 05:39 | Day surgery (SDC) | payer OTHER ==
[2017-03-22 12:14] VITALS: BMI 31.4
[2017-03-23] MEDS ORDERED: KETAMINE HCL 500 MG/10 ML VIAL ONE (08:14)
[2017-03-23 09:15] VITALS: PULSE 84; TEMP 98.8
[2017-03-23] MEDS ORDERED: LACTATED RINGERS SOLUTION 1,000 ML IV SCH (09:45)
[2017-03-23 10:03] VITALS: BP 144/70
== END 2017-03-23 09:50 | disposition home or self-care (01) ==
LOC: FECT 05:39
PROVIDERS: ATTEND Psychiatry & Neurology Psychiatry
PROC: GZB4ZZZ Other Electroconvulsive Therapy (ICD-10-PCS; principal; 2017-03-23 07:45)
DX: F25.1 Schizoaffective disorder, depressive type (principal)
CPT/HCPCS: 90870; 94760

== ENCOUNTER 2017-04-06 05:39 | Day surgery (SDC) | payer OTHER ==
[2017-03-30 10:18] VITALS: BMI 31.4
[2017-04-06 08:25] VITALS: TEMP 98
[2017-04-06 08:45] VITALS: BP 139/77; PULSE 73
== END 2017-04-06 09:05 | disposition home or self-care (01) ==
LOC: FECT 05:39
PROVIDERS: ATTEND Psychiatry & Neurology Psychiatry
PROC: GZB4ZZZ Other Electroconvulsive Therapy (ICD-10-PCS; principal; 2017-04-06 07:15)
DX: F25.1 Schizoaffective disorder, depressive type (principal)
CPT/HCPCS: 90870; 94760

== ENCOUNTER 2017-04-20 05:51 | Day surgery (SDC) | payer OTHER ==
--- NOTE | 2017-04-20 07:12 | HP ---
Admitting History and Physical - Admission History of Present Illness: patient is a 66y/o female with a past medical history of niddm, hypothyroidsim, and scizophrenia. patient presents for ect her last ect was 04/06/17. patient reports feeling well, she reports finishing a 7 days of antibiotic for a urinary tract infection. patient denies any fever. She denies any changes in medications. History Source: Patient Limitations to Obtaining History: No Limitations - Past Medical History Cardiovascular: Yes: HTN, Hyperlipdemia. No: AFIB, Aneurysm, Aortic Insufficiency, Aortic Stenosis, CAD, CHF, Deep Vein Thrombosis, [place], Mitral Insufficiency, Mitral Stenosis, Murmur, Pulmonary Hypertension, Other Psych: Yes: Schizophrenia Endocrine: Yes: Hyperthyroidism. No: [place]'s Disease, [place]'s Disease, Diabetes Insipidus, Diabetes Mellitus, Hyperparathyroidism, Hypothyroidism, Osteopenia, SIADH, Other - Past Surgical History Past Surgical History: Yes: None - Smoking History Smoking history: Former smoker Have you smoked in the past 12 months: No If you are a former smoker, when did you quit?: - Alcohol/Substance Use Hx Alcohol Use: No History of Substance Use: reports: None - Social History ADL: Independent History of Recent Travel: No Home Medications - Allergies Allergies/Adverse Reactions: Allergies Allergy/AdvReac Type Severity Reaction Status Date / Time lithium [[place]] AdvReac Mild SHAKINESS Verified 10/06/16 15:11 - Home Medications Home Medications: Ambulatory Orders Aspirin [Aspirin EC] 81 mg PO DAILY 07/09/14 Cyclosporine [Restasis] 1 each OU BID 07/09/14 Clozapine 200 mg PO DAILY 07/10/14 Clozapine 300 mg PO HS 07/10/14 Levothyroxine [Synthroid -] 125 mcg PO DAILY 07/10/14 Lorazepam [Ativan] 0.5 mg PO BID 07/10/14 Metformin HCl [Glucophage -] 500 mg PO BID 07/10/14 Mv,Calcium,Min/Iron/Folic/Vitk [Multi For Her Tablet] 1 each PO DAILY 07/10/14 Sennosides [Senna Concentrate] 8.6 mg PO HS PRN 03/05/15 Naproxen [Naprosyn -] 500 mg PO Q12H PRN 07/17/15 Polyethylene Glycol 3350 [Miralax 119 gm Btl -] 17 gm PO HS 10/01/15 Brexpiprazole [Rexulti] 2 mg PO DAILY 04/19/16 Oxcarbazepine [Trileptal] 600 mg PO BID 08/04/16 Bupropion HCl [Wellbutrin Xl] 300 mg PO DAILY 03/09/17 Family Disease History - Family Disease History Family History: Denies Review of Systems - Review of Systems Constitutional: reports: No Symptoms Eyes: reports: No Symptoms HENT: reports: No Symptoms Neck: reports: No Symptoms Cardiovascular: reports: No Symptoms Respiratory: reports: No Symptoms Gastrointestinal: reports: No Symptoms Genitourinary: reports: No Symptoms Musculoskeletal: reports: No Symptoms Integumentary: reports: No Symptoms Neurological: reports: No Symptoms Endocrine: reports: No Symptoms Hematology/Lymphatic: reports: No Symptoms Psychiatric: reports: No Symptoms Physical Examination Constitutional: Yes: Well Nourished, No Distress, Calm Eyes: Yes: WNL, Conjunctiva Clear, EOM Intact HENT: Yes: WNL, Atraumatic, Normocephalic Neck: Yes: WNL, Supple, Trachea Midline Cardiovascular: Yes: WNL, Regular Rate and Rhythm, S1, S2 Respiratory: Yes: WNL, Regular, CTA Bilaterally Gastrointestinal: Yes: WNL, Normal Bowel Sounds, Soft ...Rectal Exam: Yes: Deferred Renal/: Yes: WNL Breast(s): Yes: WNL Musculoskeletal: Yes: WNL Extremities: Yes: WNL Edema: No Peripheral Pulses WNL: Yes Peripheral Pulses: Left Radial: 4+, Right Radial: 4+, Left Doralis Pedis: 3+, Right Dorsalis Pedis: 3+, Left Femoral: 3+, Right Femoral: 3+ Integumentary: Yes: WNL Neurological: Yes: WNL, Alert, Oriented ...Motor Strength: WNL Psychiatric: Yes: WNL, Alert, Oriented Labs: reviewed 10/21 Assessment/Plan patient is a 66 y/o female that presents for ect, labs and ekg reviewed pt is meidically optimized for procedure informed consent, risks/benefits to be obtained by Dr [place]
[2017-04-20 07:30] LABS: BASOPHIL 0.1 % (0-2.0); EOSINOPHIL 0.1 % (0-4.5); MCH 30.6 pg (25.7-33.7); MCHC 33.8 g/dl (32.0-36.0); MEAN CELL VOLUME 90.7 fl (80-96); MEAN PLT VOLUME 7.6 fl (7.5-11.1); NEUTROPHILS 77.6 % (42.8-82.8); PLATELET COUNT 201 K/MM3 (134-434); WHITE BLOOD COUNT 8.6 K/mm3 (4.0-10.8)
[2017-04-20 07:58] LABS: ANION GAP 4 (8-16); CALCIUM 8.7 mg/dl (8.4-10.2); CO2 24 mmol/L (22-28); CREATININE 1.1 mg/dl (0.6-1.3); GLUCOSE,RANDOM 138 mg/dl (74-106)
[2017-04-20] MEDS ORDERED: KETAMINE HCL 500 MG/10 ML VIAL ONE (08:35)
[2017-04-20 08:40] VITALS: BMI 29.7
[2017-04-20 09:31] VITALS: PULSE 89; TEMP 98
[2017-04-20 10:05] VITALS: BP 134/87
--- NOTE | 2017-04-20 13:06 | EKG ---
Test Reason : Blood Pressure : / mmHG Vent. Rate : 093 BPM Atrial Rate : 093 BPM P-R Int : 168 ms QRS Dur : 132 ms QT Int : 388 ms P-R-T Axes : 044 -56 072 degrees QTc Int : 482 ms NORMAL SINUS RHYTHM RIGHT BUNDLE BRANCH BLOCK LEFT AXIS DEVIATION LEFT VENTRICULAR HYPERTROPHY WITH REPOLARIZATION ABNORMALITY ABNORMAL ECG WHEN COMPARED WITH ECG OF 17-OCT-2016 05:27, NO SIGNIFICANT CHANGE WAS FOUND Confirmed by JACOBO MURRIETA MD ([id number] on 04/20/2017 1:06:19 PM Referred By: Sim [place] Confirmed By:JACOBO MURRIETA MD
== END 2017-04-20 09:55 | disposition home or self-care (01) ==
LOC: FECT 05:51
PROVIDERS: ATTEND Psychiatry & Neurology Psychiatry
PROC: GZB4ZZZ Other Electroconvulsive Therapy (ICD-10-PCS; principal; 2017-04-20 07:45)
DX: F25.1 Schizoaffective disorder, depressive type (principal)
CPT/HCPCS: 36415; 80048; 85025; 90870; 93005; 94760

== ENCOUNTER 2017-05-09 05:40 | Day surgery (SDC) | payer OTHER ==
[2017-04-25 15:50] VITALS: BMI 29.7
[2017-05-09 07:23] VITALS: TEMP 98.4
[2017-05-09] MEDS ORDERED: KETAMINE HCL 500 MG/10 ML VIAL ONE (08:47)
[2017-05-09 10:30] VITALS: BP 134/76; PULSE 89
== END 2017-05-09 10:05 | disposition home or self-care (01) ==
LOC: FECT 05:40
PROVIDERS: ATTEND Psychiatry & Neurology Psychiatry
PROC: GZB4ZZZ Other Electroconvulsive Therapy (ICD-10-PCS; principal; 2017-05-09 08:00)
DX: F25.1 Schizoaffective disorder, depressive type (principal)
CPT/HCPCS: 90870; 94760

== ENCOUNTER 2017-05-16 05:37 | Day surgery (SDC) | payer OTHER ==
[2017-05-16 06:37] VITALS: TEMP 98.7
[2017-05-16 09:14] VITALS: BP 129/77; PULSE 87
== END 2017-05-16 09:15 | disposition home or self-care (01) ==
LOC: FECT 05:37
PROVIDERS: ATTEND Psychiatry & Neurology Psychiatry
PROC: GZB4ZZZ Other Electroconvulsive Therapy (ICD-10-PCS; principal; 2017-05-16 07:45)
DX: F25.1 Schizoaffective disorder, depressive type (principal)
CPT/HCPCS: 90870; 94760

== ENCOUNTER 2017-05-23 05:40 | Day surgery (SDC) | payer OTHER ==
[2017-05-23 07:05] VITALS: BMI 29.7
--- NOTE | 2017-05-23 07:36 | HP ---
CHIEF COMPLAINT: Depression/schizophrenia/ECT HISTORY OF PRESENT ILLNESS: This is a 66 year old female with a significant history of schizophrenia who presents for routine ECT. Pt reports increased depressive symptoms at present with difficulty concentrating during her day program. She denies any suicidal or homicidal ideation. She denies any recent medical illnesses. Her last ECT was 04/20/17. PAST MEDICAL HISTORY: NIDDM hypothyroidism Schizophrenia Social History: Smoking: pt quit in Alcohol: pt denies Drugs: pt denies Allergies lithium [[place]] Adverse Reaction (Mild, Verified 10/06/16 15:11) SHAKINESS SHAKINESS HOME MEDICATIONS: 3 Medication Instructions Recorded Aspirin [Aspirin EC] 81 mg PO DAILY 07/09/14 Cyclosporine [Restasis] 1 each OU BID 07/09/14 Clozapine 200 mg PO DAILY 07/10/14 Clozapine 300 mg PO HS 07/10/14 Levothyroxine [Synthroid -] 125 mcg PO DAILY 07/10/14 Lorazepam [Ativan] 0.5 mg PO BID 07/10/14 Metformin HCl [Glucophage -] 500 mg PO BID 07/10/14 Mv,Calcium,Min/Iron/Folic/Vitk 1 each PO DAILY 07/10/14 [Multi For Her Tablet] Sennosides [Senna Concentrate] 8.6 mg PO HS PRN 03/05/15 Naproxen [Naprosyn -] 500 mg PO Q12H PRN 07/17/15 Polyethylene Glycol 3350 [Miralax 17 gm PO HS 10/01/15 119 gm Btl -] Brexpiprazole [Rexulti] 2 mg PO DAILY 04/19/16 Oxcarbazepine [Trileptal] 600 mg PO BID 08/04/16 Bupropion HCl [Wellbutrin Xl] 300 mg PO DAILY 03/09/17 REVIEW OF SYSTEMS CONSTITUTIONAL: Absent: fever, chills, diaphoresis, generalized weakness, malaise, loss of appetite, weight change HEENT: Absent: rhinorrhea, nasal congestion, throat pain, throat swelling, difficulty swallowing, mouth swelling, ear pain, eye pain, visual changes CARDIOVASCULAR: Absent: chest pain, syncope, palpitations, irregular heart rate, lightheadedness , peripheral edema RESPIRATORY: Absent: cough, shortness of breath, dyspnea with exertion, orthopnea, wheezing, stridor, hemoptysis GASTROINTESTINAL: Absent: abdominal pain, abdominal distension, nausea, vomiting, diarrhea, constipation, melena, hematochezia GENITOURINARY: Absent: dysuria, frequency, urgency, hesitancy, hematuria, flank pain, genital pain MUSCULOSKELETAL: Absent: myalgia, arthralgia, joint swelling, back pain, neck pain SKIN: Absent: rash, itching, pallor HEMATOLOGIC/IMMUNOLOGIC: Absent: easy bleeding, easy bruising, lymphadenopathy, frequent infections ENDOCRINE: Absent: unexplained weight gain, unexplained weight loss, heat intolerance, cold intolerance NEUROLOGIC: Absent: headache, focal weakness or paresthesias, dizziness, unsteady gait, seizure, mental status changes, bladder or bowel incontinence PSYCHIATRIC: anxiety, depression Absent: suicidal or homicidal ideation, hallucinations. PHYSICAL EXAMINATION Vital Signs - 24 hr 3 05/23/17 06:56 Temperature 98.2 F Pulse Rate 74 Respiratory 18 Rate Blood Pressure 152/81 O2 Sat by Pulse 98 Oximetry (%) GENERAL: Awake, alert, and fully oriented, in no acute distress. HEAD: Normal with no signs of trauma. EYES: Pupils equal, round and reactive to light, extraocular movements intact, sclera anicteric, conjunctiva clear. No lid lag. EARS, NOSE, THROAT: Ears normal, nares patent, oropharynx clear without exudates. Moist mucous membranes. NECK: Normal range of motion, supple without lymphadenopathy, JVD, or masses. LUNGS: Breath sounds equal, clear to auscultation bilaterally. No wheezes, and no crackles. No accessory muscle use. HEART: Regular rate and rhythm, normal S1 and S2 without murmur, rub or gallop. ABDOMEN: Soft, nontender, not distended, normoactive bowel sounds, no guarding, no rebound, no masses. No hepatomegaly or splenomegaly. MUSCULOSKELETAL: Normal range of motion at all joints. No bony deformities or tenderness. No CVA tenderness. UPPER EXTREMITIES: 2+ pulses, warm, well-perfused. No cyanosis. No clubbing. No peripheral edema. LOWER EXTREMITIES: 2+ pulses, warm, well-perfused. No calf tenderness. No peripheral edema. NEUROLOGICAL: Cranial nerves II-XII intact. Normal speech. Normal gait. PSYCHIATRIC: Cooperative. Good eye contact. Appropriate mood and affect. SKIN: Warm, dry, normal turgor, no rashes or lesions noted, normal capillary refill. Laboratory Results - last 24 hr 3 05/23/17 07:02 POC Glucometer 138 ASSESSMENT/PLAN: 66yF with PMH hypothyroidism, NIDDM, and schizophrenia presents for planned ECT treatment. Recent (04/20/17) labs and ECG reviewed. No significant changes. Pt is medically optimized for procedure. Informed consent and risks/benefits to be obtained and discussed with pt by Dr. [place]. Visit type - Emergency Visit Emergency Visit: No - New Patient This patient is new to me today: Yes Date on this admission: 05/23/17 - Critical Care Critical Care patient: No
[2017-05-23] MEDS ORDERED: ONDANSETRON 4 MG/2 ML VIAL IVPUSH PRN (07:45)
[2017-05-23] MEDS ORDERED: oxyCODONE HCL 5 MG TABLET PO PRN (07:45)
[2017-05-23] MEDS ORDERED: LACTATED RINGERS SOLUTION 1,000 ML IV SCH (07:45)
[2017-05-23] MEDS ORDERED: KETAMINE HCL 500 MG/10 ML VIAL ONE ×2 (08:28→08:48)
[2017-05-23 10:07] VITALS: BP 129/79; PULSE 71; TEMP 99.2
== END 2017-05-23 10:30 | disposition home or self-care (01) ==
LOC: FECT 05:40
PROVIDERS: ATTEND Psychiatry & Neurology Psychiatry
PROC: GZB4ZZZ Other Electroconvulsive Therapy (ICD-10-PCS; principal; 2017-05-23 07:30)
DX: F25.1 Schizoaffective disorder, depressive type (principal)
CPT/HCPCS: 90870; 94760

== ENCOUNTER 2017-05-31 07:14 | Day surgery (SDC) | payer OTHER ==
[2017-05-31 07:41] VITALS: BMI 27.4
[2017-05-31 09:29] VITALS: PULSE 75; TEMP 98.3
[2017-05-31 16:55] VITALS: BP 148/71
== END 2017-05-31 11:25 | disposition home or self-care (01) ==
LOC: FECT 07:14
PROVIDERS: ATTEND Psychiatry & Neurology Psychiatry
PROC: GZB4ZZZ Other Electroconvulsive Therapy (ICD-10-PCS; principal; 2017-05-31 07:45)
DX: F25.1 Schizoaffective disorder, depressive type (principal)
CPT/HCPCS: 90870; 94760

== ENCOUNTER 2017-06-02 05:45 | Day surgery (SDC) | payer OTHER ==
[2017-05-31 17:22] VITALS: BMI 27.4
[2017-06-02] MEDS ORDERED: LACTATED RINGERS SOLUTION 1,000 ML IV SCH (07:45)
[2017-06-02] MEDS ORDERED: KETAMINE HCL 500 MG/10 ML VIAL ONE (08:15)
[2017-06-02 09:33] VITALS: TEMP 98.4
[2017-06-02 09:43] VITALS: BP 138/87; PULSE 88
== END 2017-06-02 10:00 | disposition home or self-care (01) ==
LOC: FECT 05:45
PROVIDERS: ATTEND Psychiatry & Neurology Psychiatry
PROC: GZB4ZZZ Other Electroconvulsive Therapy (ICD-10-PCS; principal; 2017-06-02 07:45)
DX: F25.1 Schizoaffective disorder, depressive type (principal)
CPT/HCPCS: 90870; 94760